=== PATIENT | male | born 1960 | race Caucasian/White ===

== ENCOUNTER → 2024-07-13 11:36 | Outpatient (REF) | payer OTHER, SELFPAY | LOC: RCS 11:36 | PROVIDERS: ATTENDING PHYSICIAN Nuclear Medicine Nuclear Cardiology; FAMILY PHYSICIAN Family Medicine | DX: I77.819 Aortic ectasia, unspecified site (principal); I10 Essential (primary) hypertension | CPT/HCPCS: 93306 ==